=== PATIENT | female | born 1960 | race Caucasian/White ===

== ENCOUNTER 2021-10-21 20:59 | Observation (INO) ==
[2021-10-22] MEDS ORDERED: Ondansetron 4 MG/2 ML VIAL IVP PRN ×2 (03:24→14:24)
[2021-10-22] MEDS ORDERED: Ketorolac 30 MG/ML VIAL IVP PRN ×2 (03:24→14:24)
[2021-10-22] MEDS ORDERED: Naloxone 0.4 MG/ML INJ IVP PRN ×2 (03:24→14:24)
[2021-10-22] MEDS ORDERED: 0.9 % Sodium Chloride 1,000 ML IVC SCH ×2 (03:30→18:45)
[2021-10-22] MEDS ORDERED: cefTRIAXone 1,000 MG in 0.9 % Sodium Chloride 10 ML IVP SCH (05:00)
[2021-10-22] MEDS ORDERED: Prochlorperazine 10 MG/2 ML VIAL IVP ONE (05:35)
[2021-10-22 06:38] LABS: Hematocrit 39.3 % (35.3-44.9); Mean Corpuscular HGB Conc 33.1 g/dL (31.6-35.5); Mean Corpuscular Hemoglobin 28.2 pg (28.0-33.3); Mean Corpuscular Volume 85.2 fL (83.0-100.0); Mean Platelet Volume 11.3 fL (9.4-12.4); Platelet Count 262 K/mcL (140-400); Red Blood Count 4.61 M/mcL (3.82-4.97); Red Cell Distribution Width 13.4 % (11.5-14.5); White Blood Count 11.4 K/mcL (4.3-11.1)
[2021-10-22 06:39] LABS: INR 1.1; Prothrombin Time 12.3 Seconds (9.4-12.1)
[2021-10-22 06:41] LABS: Activated Partial Thrombo Time 26.4 Seconds (26.0-36.0)
[2021-10-22 07:06] LABS: BUN/Creatinine Ratio 13 (6-26); Blood Urea Nitrogen 11 mg/dL (6-20); Calcium 8.3 mg/dL (8.6-10.3); Carbon Dioxide 21 mEq/L (23-29); Chloride 104 mEq/L (98-107); Glucose 161 mg/dL (70-105); Osmolality,Calculated 291 (280-300); Potassium 2.8 mEq/L (3.5-5.1); Sodium 139 mEq/L (136-145); eGFR For African Americans > 60 (> 60); eGFR For Non-African Americans > 60 (> 60)
[2021-10-22] MEDS ORDERED: Acetaminophen IV 1,000 MG/100 ML BAG IVPB ONE (11:52)
[2021-10-22] MEDS ORDERED: Scopolamine Patch 1.5 MG PATCH.TD72 ONE (11:57)
[2021-10-22] MEDS ORDERED: *HR* FentaNYL (PF) 100 MCG/2 ML VIAL ONE (12:03)
[2021-10-22] MEDS ORDERED: Ondansetron 4 MG/2 ML VIAL ONE (12:05)
[2021-10-22] MEDS ORDERED: Ketorolac 30 MG/ML VIAL ONE (12:43)
[2021-10-22] MEDS ORDERED: 0.9 % Sodium Chloride 500 ML ONE (12:46)
[2021-10-22] MEDS ORDERED: ALPRAZolam 1 MG TABLET PO ONE (14:24)
[2021-10-22] MEDS ORDERED: Acetaminophen 325 MG TABLET PO PRN (15:25)
[2021-10-22] MEDS ORDERED: Estrogens, Conjugated CREAM 30 GM TUBE VG SCH (21:00)
[2021-10-23] MEDS ORDERED: Melatonin 3 MG TABLET PO PRN (01:00)
[2021-10-23] MEDS ORDERED: cefTRIAXone 1,000 MG in 0.9 % Sodium Chloride 10 ML IVP SCH (05:00)
[2021-10-23 06:57] VITALS: TEMP 98.1
[2021-10-23 08:47] LABS: Basophils % 0.1 %; Hematocrit 38.6 % (35.3-44.9); Hemoglobin 12.8 g/dL (11.5-15.4); Immature Granulocytes % 0.4 % (0-4); Lymphocytes # 1.5 K/mcL (0.6-4.6); Lymphocytes % 12.5 %; Mean Corpuscular HGB Conc 33.2 g/dL (31.6-35.5); Mean Corpuscular Volume 87.3 fL (83.0-100.0); Mean Platelet Volume 11.2 fL (9.4-12.4); Monocytes # 0.6 K/mcL (0.0-1.3); Monocytes % 4.9 %; Neutrophils # 9.8 K/mcL (1.6-8.9); Platelet Count 328 K/mcL (140-400); Red Blood Count 4.42 M/mcL (3.82-4.97); Red Cell Distribution Width 13.6 % (11.5-14.5); Segmented Neutrophils % 82.1 %; White Blood Count 11.9 K/mcL (4.3-11.1)
[2021-10-23 09:05] LABS: BUN/Creatinine Ratio 15 (6-26); Blood Urea Nitrogen 15 mg/dL (6-20); Calcium 8.9 mg/dL (8.6-10.3); Carbon Dioxide 23 mEq/L (23-29); Chloride 106 mEq/L (98-107); Glucose 110 mg/dL (70-105); Magnesium 1.5 mg/dL (1.6-2.6); Osmolality,Calculated 287 (280-300); Potassium 3.3 mEq/L (3.5-5.1); Sodium 138 mEq/L (136-145); eGFR For African Americans > 60 (> 60); eGFR For Non-African Americans 57 (> 60)
[2021-10-23 10:37] VITALS: BP 155/75; PULSE 56; O2SAT 94
[2021-10-23] MEDS ORDERED: Magnesium Oxide 400 MG TABLET PO SCH (11:30)
== END 2021-10-23 12:43 | disposition home or self-care (01) ==
LOC: 3ANU → SUATTDRO 10-22 03:21
PROVIDERS: ADMIT Internal Medicine; ATTEND Internal Medicine